=== PATIENT | female | born 1995 | race Caucasian/White ===

== ENCOUNTER 2017-07-11 21:06 | Emergency (ER) | payer OTHER ==
[2017-07-11] MEDS ORDERED: PERCOCET TABLET 5/325MG PO STA (21:17)
[2017-07-11] MEDS ORDERED: PERCOCET TABLET 5/325MG ONE (21:20)
[2017-07-11] MEDS ORDERED: Marcaine 0.5% SDV 10 ML IJ ONE (21:48)
--- NOTE | 2017-07-11 21:52 | ERPHSYRPT ---
- History of Present Illness Time Seen by Provider: 07/11/17 21:27 Source: patient Exam Limitations: no limitations Patient Subjective Stated Complaint: pt reports she was cleaning approx a week ago when she smashed her right index finger between the wall and a dresser. reports pain and swelling. Triage Nursing Assessment: pt is aox3, pupils perrl, resps easy and non labored , radial pulses strong and equal. redness and swelling to the right index finger. a titanium ring is present at the distal finger. ring moves freely around the base but does not move toward the proximal finger. sensation is intact to the right index finger, cap refill < 3 seconds. finger is warm. skin is intact. Physician History: 21 y/o female comes to the ER with complaints of right index finger pain that started 1 week ago after smashing her finger in between the dresser and wall. Pt states that the swelling has gotten worse and she is unable to take the finger off. Pt describes the pain as sharp, constant, 8/10, and pt has not taken any pain meds. Occurred: last week Method of Injury: direct blow Quality: constant Severity of Pain-Max: severe Severity of Pain-Current: severe Extremities Pain Location: 2nd finger: right Modifying Factors: Improves With: nothing Associated Symptoms: none Allergies/Adverse Reactions: No Known Drug Allergies Allergy (Verified 07/11/17 21:24) Hx Tetanus, Diphtheria Vaccination/Date Given: Yes Hx Influenza Vaccination/Date Given: Yes Hx Pneumococcal Vaccination/Date Given: No Immunizations Up to Date: Yes - Review of Systems Constitutional: No Fever, No Chills Eyes: No Symptoms Ears, Nose, & Throat: No Symptoms Respiratory: No Cough, No Dyspnea Cardiac: No Chest Pain, No Edema, No Syncope Abdominal/Gastrointestinal: No Abdominal Pain, No Nausea, No Vomiting, No Diarrhea Genitourinary Symptoms: No Dysuria Musculoskeletal: Arthralgias, Joint Pain, Joint Swelling, No Back Pain, No Neck Pain Skin: No Rash Neurological: No Dizziness, No Focal Weakness, No Sensory Changes Psychological: No Symptoms Endocrine: No Symptoms All Other Systems: Reviewed and Negative - Past Medical History Pertinent Past Medical History: Yes Neurological History: No Pertinent History ENT History: No Pertinent History Cardiac History: No Pertinent History Respiratory History: No Pertinent History Endocrine Medical History: Hypoglycemia Musculoskeletal History: No Pertinent History GI Medical History: GERD, Irritable Bowel History: Renal Disease Psycho-Social History: Anxiety Female Reproductive Disorders: Menstrual Problems Other Medical History: Has had inflamed appendix a few times before. Acute renal failure 09/2015. Anemia - Past Surgical History Past Surgical History: Yes Gastrointestinal: Appendectomy - Social History Smoking Status: Current every day smoker How long have you smoked: 1 Exposure to second hand smoke: No Drug Use: none Patient Lives Alone: No - Female History Hx Last Menstrual Period: 07/11/17 Hx Now: No - Nursing Vital Signs Nursing Vital Signs: Initial Vital Signs Temperature 98.3 F 07/11/17 21:12 Pulse Rate 109 H 07/11/17 21:12 Respiratory Rate 18 07/11/17 21:12 Blood Pressure 148/128 07/11/17 21:12 O2 Sat by Pulse Oximetry 98 07/11/17 21:12 Pain Scale Pain Intensity 2 - Physical Exam General Appearance: alert Eyes, Ears, Nose, Throat Exam: moist mucous membranes Neck Exam: non-tender, supple Cardiovascular/Respiratory Exam: chest non-tender, normal breath sounds, regular rate/rhythm, no respiratory distress Abdominal Exam: non-tender, No guarding Back Exam: normal inspection, No vertebral tenderness Hand Exam: bone tenderness, ecchymosis, limited ROM Neuro/Tendon Exam: normal sensation, normal motor functions Mental Status Exam: alert, oriented x 3, cooperative Skin Exam: normal color, warm, dry SpO2: 98 Oxygen Delivery: Room Air - Course Nursing assessment & vital signs reviewed: Yes Ordered Tests: Active Orders 24 hr Category Date Time Status FINGER(S) Stat Exams 07/11/17 21:31 Taken Medication Summary Discontinued Medications Generic Name Dose Route Start Last Admin Trade Name Lawanda PRN Reason Stop Dose Admin Bupivacaine HCl 5 ml 07/11/17 21:48 07/11/17 22:10 Marcaine 0.5% Sdv 10 Ml IJ 07/11/17 21:49 Not Given STAT ONE Lidocaine HCl Confirm 07/11/17 21:56 Xylocaine 1% Hcl 20 Ml Mdv Administered 07/11/17 21:57 Dose 5 ml .ROUTE .STK-MED ONE Lidocaine HCl 5 ml 07/11/17 22:11 07/11/17 22:11 Xylocaine 1% Hcl 20 Ml Mdv IJ 07/11/17 22:12 5 ml STAT ONE Administration Oxycodone/Acetaminophen 1 tab 07/11/17 21:17 07/11/17 21:21 Percocet Tablet 5/325mg PO 07/11/17 21:18 1 tab STAT STA Administration Oxycodone/Acetaminophen Confirm 07/11/17 21:20 Percocet Tablet 5/325mg Administered 07/11/17 21:21 Dose 1 tab .ROUTE .STK-MED ONE - Progress Progress: unchanged Progress Note: 07/11/17 22:23 I have attempted to take the ring off with lubrication, digital block and ring cutter with no success. Pt has decided to take private vehicle to [facility] after I spoke to the ER doctor, Dr Zheng 07/11/17 22:29 - Departure Time of Disposition: 22:30 Departure Disposition: Home Clinical Impression: Crush injury, Ring avulsion injury of finger Condition: Stable Critical Care Time: No Referrals: DOCTOR,NO FAMILY [Primary Care Provider] - Instructions: Finger Sprain
[2017-07-11] MEDS ORDERED: XYLOCAINE 1% HCL 20 ML MDV ONE (21:56)
[2017-07-11] MEDS ORDERED: XYLOCAINE 1% HCL 20 ML MDV IJ ONE (22:11)
[2017-07-11 22:20] VITALS: PULSE 86
[2017-07-11 22:24] VITALS: O2SAT 98
[2017-07-11 22:48] VITALS: BP 114/64
--- NOTE | 2017-07-12 09:19 | XRAY ---
Indication: Pain and swelling following injury. Comparison: None 3 views of the right second finger demonstrates ring at the base with soft tissue swelling just distally. No other bony, articular, or soft tissue abnormalities.
== END 2017-07-11 22:20 | disposition short-term general hospital (02) ==
LOC: ED 21:06
DX: S67.190A Crushing injury of right index finger, initial encounter (principal); W23.0XXA Caught, crushed, jammed, or pinched between moving objects, initial encounter
CPT/HCPCS: 73140; 96372; 99285; A9270-GY

== ENCOUNTER 2022-08-09 05:04 | Emergency (ER) | payer OTHER, SELFPAY ==
[2022-08-09 05:39] LABS: Absolute Neutrophil Ct (ANC) 4.89 x10^3/uL (1.4-6.9); Basophil (Absolute #) 0.04 x10^3/uL (0-0.4); Eosinophil % 1.9 % (0.00-5.0); Eosinophil (Absolute #) 0.16 x10^3/uL (0-0.5); Hematocrit 35.7 % (35-47); Hemoglobin 11.2 g/dL (12.0-16.0); Lymphocyte (Absolute #) 2.95 x10^3/uL (1.0-4.6); Lymphocytes % 34.4 % (24.0-44.0); Mean Cell Volume 91.3 fL (78-100); Mean Corpuscular Hemoglobin 28.6 pg (26-32); Mean Corpuscular Hgb Concent. 31.4 g/dL (32-36); Mean Platelet Volume 8.8 fL (7.5-11.0); Monocyte (Absolute #) 0.47 x10^3/uL (0.0-1.3); Monocytes % 5.5 % (0.0-12.0); Neutrophil % 56.9 % (36.0-66.0); Platelet Count 292 x10^3/uL (150-450); Red Blood Count 3.91 x10^6/uL (4.1-5.4); Red Cell Distribution Width 13.9 % (11.5-14.0); White Blood Count 8.6 x10^3/uL (4.0-10.5)
[2022-08-09] MEDS ORDERED: TORAdol 30 mg Injection IV ONE (05:39)
--- NOTE | 2022-08-09 05:45 | ERPHSYRPT ---
<ROCHELLE MERCEDES - Last Filed: 08/09/22 07:09> - History of Present Illness Historian: patient, EMS Exam Limitations: no limitations Patient Subjective Stated Complaint: pt states that she had stomach pain so bad that comes and goes Triage Nursing Assessment: pt came into the er via ambulance; pt is axo x4; c/o abd pain; pt is grabbing stomach and yelling out; abd is soft, round, tender; active bowel sounds in all quads; skin PDW; vitals wnl Physician History: 26 yo wf w mid-sternal chest pain w radiation to her back x 5.5 hours. Pain started in her sleep and is 9/10 on scale at present. It is accompanied by nausea/dyspnea/diaphoresis wo vomiting. She denies h/o CAD/CA/HTN/DM/drug use but does smoke 1ppd. Cough/fever are also denied. Pt was picked up at [facility]. Timing/Duration: other (5.5 hours) Quality: sharpness Location: substernal Chest Pain Radiation: back Severity of Pain-Max: severe Severity of Pain-Current: severe Modifying Factors: Improves With: nothing Associated Symptoms: nausea, back pain, No vomiting, No cough Prior Chest Pain/Cardiac Workup: no prior chest pain Nitro Today/Relief: no nitro taken today Aspirin Treatment Today: no aspirin today Allergies/Adverse Reactions: No Known Drug Allergies Allergy (Verified 08/09/22 05:10) Hx Tetanus, Diphtheria Vaccination/Date Given: No Hx Influenza Vaccination/Date Given: No Hx Pneumococcal Vaccination/Date Given: No Travel Risk - International Travel Have you traveled outside of the country in past 3 weeks: No - Coronavirus Screening Are you exhibiting any of the following symptoms?: No Close contact with a COVID-19 positive Pt in past 14-21 Days: No - Vaccine Status Have you recieved a Covid-19 vaccination: No - Review of Systems Constitutional: No Symptoms Eyes: No Symptoms Ears, Nose, & Throat: No Symptoms Respiratory: No Symptoms, Dyspnea Cardiac: No Symptoms, Chest Pain Abdominal/Gastrointestinal: No Symptoms, Nausea Genitourinary Symptoms: No Symptoms Musculoskeletal: No Symptoms Skin: No Symptoms Neurological: No Symptoms Psychological: No Symptoms Endocrine: No Symptoms Hematologic/Lymphatic: No Symptoms Immunological/Allergic: No Symptoms - Past Medical History Pertinent Past Medical History: Yes Neurological History: No Pertinent History ENT History: No Pertinent History Cardiac History: No Pertinent History Respiratory History: No Pertinent History Endocrine Medical History: Hypoglycemia Musculoskeletal History: No Pertinent History GI Medical History: GERD, Irritable Bowel History: Renal Disease Psycho-Social History: Anxiety Female Reproductive Disorders: Menstrual Problems Other Medical History: Has had inflamed appendix a few times before. Acute renal failure 09/2015. Anemia - Past Surgical History Past Surgical History: Yes Neuro Surgical History: No Pertinent History Cardiac: No Pertinent History Respiratory: No Pertinent History Gastrointestinal: Appendectomy Genitourinary: No Pertinent History Musculoskeletal: No Pertinent History Female Surgical History: No Pertinent History - Social History Smoking Status: Current every day smoker How long have you smoked: 1 Exposure to second hand smoke: Yes Drug Use: none Patient Lives Alone: No - Female History Hx Last Menstrual Period: 11/11 Hx Now: No - Nursing Vital Signs Nursing Vital Signs: WNL - Physical Exam General Appearance: no apparent distress, anxiety Eye Exam: PERRL/EOMI, eyes nml inspection Ears, Nose, Throat Exam: normal ENT inspection, TMs normal, pharynx normal, moist mucous membranes Neck Exam: normal inspection, non-tender, supple, full range of motion, No meningismus, No mass, No Brudzinski, No Kernig's, No carotid bruit Respiratory Exam: normal breath sounds, lungs clear, airway intact, No chest tenderness, No respiratory distress Cardiovascular Exam: regular rate/rhythm, normal heart sounds, normal peripheral pulses, capillary refill <2 sec, No murmur Gastrointestinal/Abdomen Exam: soft, normal bowel sounds, tenderness (Mild e pigastric TTP w guarding but no rebound) Back Exam: normal inspection, normal range of motion, No vertebral tenderness Extremity Exam: normal inspection, normal range of motion Neurologic Exam: alert, oriented x 3, cooperative, carpentry specialist II-XII nml as tested, normal mood/affect, sensation nml Skin Exam: normal color, warm, dry Lymphatic Exam: No adenopathy - Course Nursing assessment & vital signs reviewed: Yes EKG Interpreted by Me: RATE (NSR/Rate 73/Normal QT-QTc/Tall T waves/No acute ST segment changes) - Radiology Exams Chest X-ray Interpretation: Interpreted by me (CXR-NAD) - Progress Progress Note: 08/09/22 06:46 Nurses note and vital signs reviewed 1gm IV Rocephin for UTI Heart score 0 Wells Score 0 Labs reviewed and CXR read in ER/Results shared w pt 15mg IV Toradol w improvement in pain 1gm IV Rocephin Care turned over to Dr. Rice at 700AM w Ct abdomen-pelvis pending 08/09/22 07:09 Counseled pt/family regarding: lab results, diagnosis, rad results - Departure Clinical Impression: UTI (urinary tract infection), Chest pain, Pancreatitis, Ovarian cyst Condition: Stable Referrals: DOCTOR,NO FAMILY [Primary Care Provider] - Follow up/PCP as directed CARLOS MCFARLAND DO [ACTIVE STAFF] - Follow up/PCP as directed (1-2 days for re evaluation) ALINA PEREZ DO [ACTIVE STAFF] - Follow up/PCP as directed (For evaluation of ovarian cyst) Instructions: Pancreatitis (DC), Angina (DC) Additional Instructions: Take Tylenol/ibuprofen as needed for pain. Follow-up with primary care for reevaluation. Take clear liquid diet for next 24 to 48 hours. Return to ER for worsening epigastric pain, chest pain, intractable vomiting, fever chills etc. Prescriptions: Ibuprofen 600 mg PO Q6HPRN PRN 10 Days #20 tablet PRN Reason: Pain Cephalexin Mh 500 mg [Keflex 500 mg] 500 mg PO TID #21 cap <MIRLANDE RICE - Last Filed: 08/09/22 12:29> - Nursing Vital Signs Nursing Vital Signs: Initial Vital Signs Temperature 97.2 F 08/09/22 05:05 Pulse Rate 81 08/09/22 05:05 Respiratory Rate 18 08/09/22 05:05 Blood Pressure 121/79 08/09/22 05:05 Pain Scale Pain Intensity 0 Ordered Tests: Active Orders 24 hr Category Date Time Status EKG-ER Only STAT Care 08/09/22 05:18 Active ABDOMEN AND PELVIS W/0 CONTRAS [CT] Stat Exams 08/09/22 06:38 Completed CHEST 1 VIEW (PORTABLE) Stat Exams 08/09/22 06:11 Completed GALLBLADDER [US] Stat Exams 08/09/22 10:29 Completed AMYLASE Stat Lab 08/09/22 05:39 Completed CBC W DIFF Stat Lab 08/09/22 05:39 Completed CMP Stat Lab 08/09/22 05:39 Completed CULTURE,URINE Stat Lab 08/09/22 05:21 Received HCG QUALITATIVE,SERUM Stat Lab 08/09/22 05:39 Completed LIPASE Stat Lab 08/09/22 05:39 Completed PROTIME WITH INR Stat Lab 08/09/22 05:39 Completed PTT Stat Lab 08/09/22 05:39 Completed TROPONIN Q4H Lab 08/09/22 05:39 Completed TROPONIN Q4H Lab 08/09/22 13:30 Ordered TROPONIN Stat Lab 08/09/22 11:30 Completed UA W/RFX UR CULTURE Stat Lab 08/09/22 05:21 Completed Urine Triage Profile Stat Lab 08/09/22 05:21 Completed Medication Summary Discontinued Medications Generic Name Dose Route Start Last Admin Trade Name Freq PRN Reason Stop Dose Admin Ceftriaxone Sodium/Dextrose 1 g in 50 mls @ 100 mls/hr 08/09/22 06:23 08/09/22 07:04 Rocephin 1 Gm-D5w 50 Ml Bag IV 08/09/22 06:52 Infused STAT STA Infusion Ceftriaxone Sodium/Dextrose Confirm 08/09/22 06:24 Rocephin 1 Gm-D5w 50 Ml Bag Administered 08/09/22 06:25 Dose 1 g in 50 mls @ ud IV .STK-MED ONE Ketorolac Tromethamine 15 mg 08/09/22 05:39 08/09/22 05:49 Ketorolac Tromethamine 30 Mg/Ml Inj IV 08/09/22 05:40 15 mg STAT ONE Administration Ketorolac Tromethamine Confirm 08/09/22 05:48 Ketorolac Tromethamine 30 Mg/Ml Inj Administered 08/09/22 05:49 Dose 30 mg .ROUTE .STK-MED ONE Lab/Rad Data: Laboratory Result Diagrams 08/09/22 05:39 08/09/22 05:39 Laboratory Results 08/09/22 08/09/22 08/09/22 Range/Units 11:30 07:43 05:39 WBC (4.0-10.5) x10^3/uL RBC (4.1-5.4) x10^6/uL Hgb (12.0-16.0) g/dL Hct (35-47) % MCV (78-100) fL MCH (26-32) pg MCHC (32-36) g/dL RDW (11.5-14.0) % Plt Count (150-450) x10^3/uL MPV (7.5-11.0) fL Gran % (36.0-66.0) % Immature Gran % (Auto) (0.00-0.4) % Nucleat RBC Rel Count (0.00-0.1) % Eos # (Auto) (0-0.5) x10^3/uL Immature Gran # (Auto) (0.00-0.03) x10^3u/L Absolute Lymphs (auto) (1.0-4.6) x10^3/uL Absolute Monos (auto) (0.0-1.3) x10^3/uL Absolute Nucleated RBC (0.00-0.01) x10^3u/L Lymphocytes % (24.0-44.0) % Monocytes % (0.0-12.0) % Eosinophils % (0.00-5.0) % Basophils % (0.0-0.4) % Absolute Granulocytes (1.4-6.9) x10^3/uL Basophils # (0-0.4) x10^3/uL PT (9.4-12.5) SECONDS INR (0.8-3.0) APTT (25.1-36.5) SECONDS Sodium (137-145) mmol/L Potassium (3.5-5.1) mmol/L Chloride (98-107) mmol/L Carbon Dioxide (22-30) mmol/L Anion Gap (5-15) MEQ/L BUN (7-17) mg/dL Creatinine (0.52-1.04) mg/dL Estimated GFR ML/MIN Glucose (74-106) mg/dL Calcium (8.4-10.2) mg/dL Total Bilirubin (0.2-1.3) mg/dL AST (14-36) U/L ALT (0-35) U/L Alkaline Phosphatase (38-126) U/L Troponin 0.04 H (0.00-0.03) ng/mL Troponin I < 0.012 < 0.012 (0.000-0.034) ng/mL Serum Total Protein (6.3-8.2) g/dL Albumin (3.5-5.0) g/dL Amylase 101 (30-110) U/L Lipase 516 H (23-300) U/L Serum , Qual (Negative) Urine Color (Yellow) Urine Appearance (Clear) Urine pH (4.6-8.0) Ur Specific [place] (1.005-1.030) Urine Protein (Negative) Urine Glucose (UA) (Negative) mg/dL Urine Ketones (Negative) Urine Blood (Negative) Urine Nitrite (Negative) Urine Bilirubin (Negative) Urine Urobilinogen (0.2) mg/dL Ur Leukocyte Esterase (Negative) U Hyaline Cast (Auto) (0-2) /LPF Urine Microscopic RBC (0-5) /HPF Urine Microscopic WBC (0-5) /HPF Ur Epithelial Cells (None Seen) /HPF Urine Bacteria (None Seen) /HPF Urine Culture Reflexed (NO) Urine Opiates Level (NEGATIVE) Ur Methadone (NEGATIVE) Urine Barbiturates (NEGATIVE) Ur Phencyclidine (PCP) (NEGATIVE) Urine Amphetamine (NEGATIVE) U Benzodiazepine Level (NEGATIVE) Urine Cocaine (NEGATIVE) Urine Marijuana (THC) (NEGATIVE) 08/09/22 08/09/22 08/09/22 Range/Units 05:39 05:39 05:39 WBC (4.0-10.5) x10^3/uL RBC (4.1-5.4) x10^6/uL Hgb (12.0-16.0) g/dL Hct (35-47) % MCV (78-100) fL MCH (26-32) pg MCHC (32-36) g/dL RDW (11.5-14.0) % Plt Count (150-450) x10^3/uL MPV (7.5-11.0) fL Gran % (36.0-66.0) % Immature Gran % (Auto) (0.00-0.4) % Nucleat RBC Rel Count (0.00-0.1) % Eos # (Auto) (0-0.5) x10^3/uL Immature Gran # (Auto) (0.00-0.03) x10^3u/L Absolute Lymphs (auto) (1.0-4.6) x10^3/uL Absolute Monos (auto) (0.0-1.3) x10^3/uL Absolute Nucleated RBC (0.00-0.01) x10^3u/L Lymphocytes % (24.0-44.0) % Monocytes % (0.0-12.0) % Eosinophils % (0.00-5.0) % Basophils % (0.0-0.4) % Absolute Granulocytes (1.4-6.9) x10^3/uL Basophils # (0-0.4) x10^3/uL PT 10.2 (9.4-12.5) SECONDS INR 0.96 (0.8-3.0) APTT 28.5 (25.1-36.5) SECONDS Sodium 136 L (137-145) mmol/L Potassium 4.3 (3.5-5.1) mmol/L Chloride 102 (98-107) mmol/L Carbon Dioxide 31 H (22-30) mmol/L Anion Gap 7.7 (5-15) MEQ/L BUN 19 H (7-17) mg/dL Creatinine 0.60 (0.52-1.04) mg/dL Estimated GFR > 60.0 ML/MIN Glucose 109 H (74-106) mg/dL Calcium 8.8 (8.4-10.2) mg/dL Total Bilirubin 0.30 (0.2-1.3) mg/dL AST 61 H (14-36) U/L ALT 36 H (0-35) U/L Alkaline Phosphatase 58 (38-126) U/L Troponin (0.00-0.03) ng/mL Troponin I (0.000-0.034) ng/mL Serum Total Protein 7.4 (6.3-8.2) g/dL Albumin 4.0 (3.5-5.0) g/dL Amylase (30-110) U/L Lipase (23-300) U/L Serum , Qual NEGATIVE (Negative) Urine Color (Yellow) Urine Appearance (Clear) Urine pH (4.6-8.0) Ur Specific [place] (1.005-1.030) Urine Protein (Negative) Urine Glucose (UA) (Negative) mg/dL Urine Ketones (Negative) Urine Blood (Negative) Urine Nitrite (Negative) Urine Bilirubin (Negative) Urine Urobilinogen (0.2) mg/dL Ur Leukocyte Esterase (Negative) U Hyaline Cast (Auto) (0-2) /LPF Urine Microscopic RBC (0-5) /HPF Urine Microscopic WBC (0-5) /HPF Ur Epithelial Cells (None Seen) /HPF Urine Bacteria (None Seen) /HPF Urine Culture Reflexed (NO) Urine Opiates Level (NEGATIVE) Ur Methadone (NEGATIVE) Urine Barbiturates (NEGATIVE) Ur Phencyclidine (PCP) (NEGATIVE) Urine Amphetamine (NEGATIVE) U Benzodiazepine Level (NEGATIVE) Urine Cocaine (NEGATIVE) Urine Marijuana (THC) (NEGATIVE) 08/09/22 08/09/22 08/09/22 Range/Units 05:39 05:21 05:21 WBC 8.6 (4.0-10.5) x10^3/uL RBC 3.91 L (4.1-5.4) x10^6/uL Hgb 11.2 L (12.0-16.0) g/dL Hct 35.7 (35-47) % MCV 91.3 (78-100) fL MCH 28.6 (26-32) pg MCHC 31.4 L (32-36) g/dL RDW 13.9 (11.5-14.0) % Plt Count 292 (150-450) x10^3/uL MPV 8.8 (7.5-11.0) fL Gran % 56.9 (36.0-66.0) % Immature Gran % (Auto) 0.8 H (0.00-0.4) % Nucleat RBC Rel Count 0.0 (0.00-0.1) % Eos # (Auto) 0.16 (0-0.5) x10^3/uL Immature Gran # (Auto) 0.07 H (0.00-0.03) x10^3u/L Absolute Lymphs (auto) 2.95 (1.0-4.6) x10^3/uL Absolute Monos (auto) 0.47 (0.0-1.3) x10^3/uL Absolute Nucleated RBC 0.00 (0.00-0.01) x10^3u/L Lymphocytes % 34.4 (24.0-44.0) % Monocytes % 5.5 (0.0-12.0) % Eosinophils % 1.9 (0.00-5.0) % Basophils % 0.5 (0.0-0.4) % Absolute Granulocytes 4.89 (1.4-6.9) x10^3/uL Basophils # 0.04 (0-0.4) x10^3/uL PT (9.4-12.5) SECONDS INR (0.8-3.0) APTT (25.1-36.5) SECONDS Sodium (137-145) mmol/L Potassium (3.5-5.1) mmol/L Chloride (98-107) mmol/L Carbon Dioxide (22-30) mmol/L Anion Gap (5-15) MEQ/L BUN (7-17) mg/dL Creatinine (0.52-1.04) mg/dL Estimated GFR ML/MIN Glucose (74-106) mg/dL Calcium (8.4-10.2) mg/dL Total Bilirubin (0.2-1.3) mg/dL AST (14-36) U/L ALT (0-35) U/L Alkaline Phosphatase (38-126) U/L Troponin (0.00-0.03) ng/mL Troponin I (0.000-0.034) ng/mL Serum Total Protein (6.3-8.2) g/dL Albumin (3.5-5.0) g/dL Amylase (30-110) U/L Lipase (23-300) U/L Serum , Qual (Negative) Urine Color Yellow (Yellow) Urine Appearance Cloudy A (Clear) Urine pH 6.5 (4.6-8.0) Ur Specific [place] 1.020 (1.005-1.030) Urine Protein Negative (Negative) Urine Glucose (UA) Negative (Negative) mg/dL Urine Ketones Negative (Negative) Urine Blood Negative (Negative) Urine Nitrite Positive A (Negative) Urine Bilirubin Negative (Negative) Urine Urobilinogen 0.2 (0.2) mg/dL Ur Leukocyte Esterase Moderate A (Negative) U Hyaline Cast (Auto) NONE SEEN (0-2) /LPF Urine Microscopic RBC 0-2 (0-5) /HPF Urine Microscopic WBC >100 A (0-5) /HPF Ur Epithelial Cells Rare (None Seen) /HPF Urine Bacteria Many A (None Seen) /HPF Urine Culture Reflexed YES (NO) Urine Opiates Level NEGATIVE (NEGATIVE) Ur Methadone NEGATIVE (NEGATIVE) Urine Barbiturates NEGATIVE (NEGATIVE) Ur Phencyclidine (PCP) NEGATIVE (NEGATIVE) Urine Amphetamine NEGATIVE (NEGATIVE) U Benzodiazepine Level NEGATIVE (NEGATIVE) Urine Cocaine NEGATIVE (NEGATIVE) Urine Marijuana (THC) POSITIVE (NEGATIVE) - Progress Progress: improved, re-examined Air Movement: good Progress Note: 08/09/22 08:44 patient is chest pain-free during my evaluation and resting comfortably. She has minimal tenderness in the epigastric area, does have mild elevation in lipase and CT did showed some gallstones. Will obtain ultrasound gallbladder to make sure she does not have acute cholecystitis. CT did show left-sided mild increase in the size of ovarian cyst and will recommend outpatient follow-up. Patient does not have any tenderness down there. Second troponin is done with i-STAT with mild elevation but initial troponin on a regular analyzer was negative. Patient is not in any pain at all. I will obtain troponin and again on a regular analyzer as I do not believe she has acute cardiac event going on. 08/09/22 12:26 I have obtained ultrasound which did show cholelithiasis without acute cholecystitis. Repeat second troponin on regular analyzer is negative. Patient remained chest pain-free. Repeat EKG is normal sinus rhythm with no changes at all. I believe she has been having pain secondary to pancreatitis, recommended clear liquid diet for next 24 to 48 hours, medications per pain and UTI are prescribed. Outpatient follow-up recommended. Discussed signs symptoms of wo rsening needing return to ER which she seems understanding. Stable for discharge. 08/09/22 12:28 Blood Culture(s) Obtained: No Antibiotics given: Yes - Departure Departure Disposition: Home Critical Care Time: No
[2022-08-09] MEDS ORDERED: TORAdol 30 mg Injection ONE (05:48)
[2022-08-09 05:49] LABS: Appearance Cloudy (Clear); Bilirubin Negative (Negative); Blood Negative (Negative); Glucose, Urine Negative (Negative); Ketones Negative (Negative); Leukocyte Esterase Moderate (Negative); Nitrite Positive (Negative); Ph 6.5 (4.6-8.0); Protein,Urine Dip Negative (Negative); Urobilinogen 0.2 mg/dL (0.2)
[2022-08-09 05:54] LABS: ALKALINE PHOSPHATASE 58 U/L (38-126); ANION GAP 7.7 MEQ/L (5-15); BLOOD UREA NITROGEN 19 mg/dL (7-17); CHLORIDE 102 mmol/L (98-107); Calcium 8.8 mg/dL (8.4-10.2); Carbon Dioxide 31 mmol/L (22-30); EST GLOMERULAR FILTRATION RATE > 60.0 ML/MIN; Glucose 109 mg/dL (74-106); INR 0.96 (0.8-3.0); PROTIME 10.2 SECONDS (9.4-12.5); PTT 28.5 SECONDS (25.1-36.5); Potassium 4.3 mmol/L (3.5-5.1); SGOT/AST 61 U/L (14-36); SGPT/ALT 36 U/L (0-35); SODIUM 136 mmol/L (137-145); Total Protein 7.4 g/dL (6.3-8.2)
[2022-08-09 06:04] LABS: TROPONIN < 0.012 ng/mL (0.000-0.034)
[2022-08-09 06:08] LABS: Amphetamine,Urine NEGATIVE (NEGATIVE); Barbiturate,Urine NEGATIVE (NEGATIVE); Benzodiazepine,Urine NEGATIVE (NEGATIVE); Cocaine,Urine NEGATIVE (NEGATIVE); Methadone,Urine NEGATIVE (NEGATIVE); Opiate,Urine NEGATIVE (NEGATIVE); PCP,Urine NEGATIVE (NEGATIVE); THC,Urine POSITIVE (NEGATIVE)
[2022-08-09 06:14] LABS: Bacteria Many /HPF (None Seen); Epithelial Cells Rare /HPF (None Seen); Hyaline Casts NONE SEEN /LPF (0-2); RBC 0-2 /HPF (0-5); WBC >100 /HPF (0-5)
[2022-08-09 06:20] LABS: ADD URINE CULTURE? YES (NO)
[2022-08-09] MEDS ORDERED: ROCEPHIN 1 Gm-D5w 50 ml Bag** 1 G/50 ML IVPB IV STA (06:23)
[2022-08-09] MEDS ORDERED: ROCEPHIN 1 Gm-D5w 50 ml Bag** 1 G/50 ML IVPB IV ONE (06:24)
[2022-08-09 06:35] LABS: AMYLASE 101 U/L (30-110); LIPASE 516 U/L (23-300)
--- NOTE | 2022-08-09 08:45 | XRAY ---
Indication: Abdomen pain. Elevated lipase. Multiple contiguous axial images obtained through the abdomen and pelvis without contrast. Comparison: May 22, 2017 Lung bases remain clear. Heart not enlarged. Stomach is markedly distended with food/fluid. Gallbladder normally distended without gallstones. Noncontrasted stomach and bowel loops appear nonobstructed. Interval appendectomy. There is now mild diffuse scattered colonic fecal debris throughout. Slightly enlarging 7.3 cm left ovary cyst, previously 6.4 cm. No free fluid/air. Remaining liver, pancreas, spleen, adrenal glands, kidneys, ureters, bladder, uterus, and aorta are unremarkable for noncontrast exam. Osseous structures intact. Impression: 1. Mild diffuse fecal stasis. 2. Enlarging left ovary cyst better evaluated with sonogram. 3. Normal distended gallbladder, a abnormal finding given postprandial status. Gallbladder sonogram may yield further information. Comment: Preliminary interpretation made by [facility]. No critical discrepancy.
--- NOTE | 2022-08-09 08:45 | XRAY ---
Indication: Chest pain. Comparison: None Portable chest demonstrates normal heart, lungs, and bony thorax.
--- NOTE | 2022-08-09 11:05 | XRAY ---
Indication: Epigastric pain. Two-dimensional gallbladder sonogram performed. Comparison: June 07, 2017 Gallbladder normally distended with new 1.8 cm oval gallstone. No abnormal gallbladder wall thickening or pericholecystic fluid. Common bile duct measures 3.4 mm. No intrahepatic biliary distention. Remaining visualized liver, pancreas, and right kidney are sonographically unremarkable. Right kidney measures 11.3 cm in length. Impression: New cholelithiasis without cholecystitis/biliary distention.
[2022-08-09 11:39] VITALS: O2SAT 100
[2022-08-09 12:22] VITALS: BP 111/56; PULSE 73
[2022-08-09 12:26] LABS: INFLUENZA A NEGATIVE (NEGATIVE); INFLUENZA B NEGATIVE (NEGATIVE); RESPIRATORY SYNCTIAL VIRUS NEGATIVE (Negative); SARS-CoV-2 Xpert Express NEGATIVE (NEGATIVE)
== END 2022-08-09 12:28 | disposition home or self-care (01) ==
LOC: ED 05:04
DX: K85.90 Acute pancreatitis without necrosis or infection, unspecified (principal); N39.0 Urinary tract infection, site not specified; N83.202 Unspecified ovarian cyst, left side; R07.9 Chest pain, unspecified; R11.0 Nausea; R06.00 Dyspnea, unspecified; Z72.0 Tobacco use; Z28.310 Unvaccinated for COVID-19
CPT/HCPCS: 0241U; 36000; 36415; 71045; 74176; 76705; 80053; 80307; 81001; 82150; 83690; 84484; 84703; 85025; 85610; 85730; 87086; 93005; 96365; 96374; 99284; 87077; 87186; J0696; J1885